=== PATIENT | female | born 1985 | race Caucasian/White ===

== ENCOUNTER 2022-01-23 11:40 | Outpatient (CLI) | payer BC, SELFPAY ==
[2022-01-23 12:05] VITALS: BP 110/68; PULSE 76; TEMP 36.8; O2SAT 98
[2022-01-23 12:20] VITALS: BMI 34.2
[2022-01-23 16:01] VITALS: BP 121/69; PULSE 93
[2022-01-23 16:35] VITALS: BP 141/91; PULSE 76
[2022-01-23 16:36] VITALS: BP 141/68; PULSE 67
--- NOTE | 2022-01-23 17:35 | OB.TRI.NOTE ---
HPI - General HPI Narrative TIANA DOWNING, is a 36 F at 34.3 weeks gestation who presents to triage for extended monitoring s/p fall at home. Patient called in and fell down the steps at home. She landed on back/side. Had not felt baby move since fall. Denies any direct trauma to abdomen. Denies any abdominal pain, cramping or contractions. Maternal Data Information SHANE Calculator Estimated Delivery Date Method Current WG Current Estimate 03/03/22 LMP (Certain) 34w 3d PFSH PFSH Home Medications aspirin [Aspirin Low Dose] 81 mg PO DAILY 01/23/22 [History Last Taken 01/23/22 07:00] buspirone [BuSpar] 10 mg PO BID 01/23/22 [History Last Taken 01/23/22 06:00] magnesium 400 mg PO/SL DAILY 01/23/22 [History Last Taken 01/22/22 21:00] no.144-folic acid [] 1 tab PO DAILY 01/23/22 [History Last Taken 01/23/22 07:00] sertraline [Zoloft] 100 mg PO BID 01/23/22 [History Last Taken 01/23/22 06:00] Allergy/AdvReac Type Severity Reaction Status Date / Time Penicillins [PCN] Allergy Severe Hives Verified 01/23/22 12:25 Sulfa (Sulfonamide Allergy Severe Swelling Verified 01/23/22 12:25 Antibiotics) ROS Eyes Eyes: Denies blurry vision Cardiovascular Cardiovascular: Reports none; Denies chest pain at rest, chest pain with activity or dizziness Respiratory/Chest Respiratory/Chest: Denies cough or dyspnea Gastrointestinal Gastrointestinal: Reports none and other; Denies diarrhea or vomiting Genitourinary Genitourinary: Denies dysuria Musculoskeletal Musculoskeletal: Reports none Integumentary Integumentary: Reports none; Denies rash Neurologic Neurologic: Denies dizziness, headache(s) or other visual disturbances Psychiatric Psychiatric: Reports none Physical Exam Const alert and no apparent distress General Appearance: cooperative Orientation / Consciousness: awake Exam Limitations: no limitations HEENT normocephalic Eyes General Eye: normal appearance of both eyes Neck full ROM Chest inspection of chest normal Resp normal respiratory effort and normal air movement Effort and Inspection: symmetric chest movement Auscultation: clear to auscultation bilaterally Cardio regular rate GI soft to palpation, non-tender and non-distended Inspection: and other Back/Spine normal ROM Extremity full ROM, normal capillary refill and no calf tenderness Skin no rashes or lesions noted Neuro oriented x3 and CN's II-XII intact bilaterally Psych mental status grossly normal NST FHR Rate Baby A Baseline: 135 Variability:: Moderate Accelerations:: 15 x 15 Decelerations:: None NST Reactive:: Yes FHR Category:: Category I Uterine Activity:: irritability Assessment & Plan (1) Fall: QUALIFIERS: Encounter type: initial encounter Qualified Code(s): W19.XXXA - Unspecified fall, initial encounter (2) 34 weeks gestation of : PLAN: Extended monitoring Positive movement since arrival to triage NST reactive- Cat. 1 tracing TOCO- contractions- patient denies feeling any cramps or contractions D/C home with follow up in office for RAZIA Dominguez notified and is collaborating physician
[2022-01-23 17:48] VITALS: BP 137/78; PULSE 81
== END 2022-01-23 23:59 | disposition home or self-care (01) ==
LOC: WPOUT 12:00 → WP 12:08
PROVIDERS: PCP Family Medicine; Visit Provider Advanced Practice Midwife
DX: Z34.93 Encounter for supervision of normal pregnancy, unspecified, third trimester (principal); Z04.3 Encounter for examination and observation following other accident; W10.9XXA Fall (on) (from) unspecified stairs and steps, initial encounter; Y93.9 Activity, unspecified; Y92.009 Unspecified place in unspecified non-institutional (private) residence as the place of occurrence of the external cause
CPT/HCPCS: 59025; 59050; 99218; G0378

== ENCOUNTER 2022-02-24 23:10 | Inpatient (IN) | payer BC, SELFPAY ==
--- NOTE | 2022-02-24 23:31 | HP.PCM.OB_ITS ---
HPI - General General Date of Admission: 02/24/22 HPI Narrative TIANA DOWNING, is a 36 F who presents at 39w0d with contractions and SROM. Contractions on and off throughout the day then felt a pop and gush of fluid. Contractions increased in strength and presented to hospital. Maternal Data Information SHANE Calculator Estimated Delivery Date Method Current WG Current Estimate 03/03/22 LMP (Certain) 39w 0d PFSH PFSH Home Medications aspirin [Aspirin Low Dose] 81 mg PO DAILY 01/23/22 [History Last Taken 01/23/22 07:00] buspirone [BuSpar] 10 mg PO BID 01/23/22 [History Last Taken 01/23/22 06:00] magnesium 400 mg PO/SL DAILY 01/23/22 [History Last Taken 01/22/22 21:00] no.144-folic acid [] 1 tab PO DAILY 01/23/22 [History Last Taken 01/23/22 07:00] sertraline [Zoloft] 100 mg PO BID 01/23/22 [History Last Taken 01/23/22 06:00] Allergy/AdvReac Type Severity Reaction Status Date / Time Penicillins [PCN] Allergy Severe Hives Verified 01/23/22 12:25 Sulfa (Sulfonamide Allergy Severe Swelling Verified 01/23/22 12:25 Antibiotics) ROS Constitutional Constitutional: Reports systems reviewed and no addt'l complaints, except as documented; Denies headache(s) Eyes Eyes: Denies acute decrease in peripheral vision, blurry vision or change in vision ENT HEENT: Reports systems reviewed and no addt'l complaints, except as documented Cardiovascular Cardiovascular: Denies chest pain or dizziness Respiratory/Chest Respiratory/Chest: Denies cough, dyspnea, dyspnea on exertion, shortness of breath at rest or shortness of breath with exertion Gastrointestinal Gastrointestinal: Denies abdominal pain, diarrhea, nausea or vomiting Genitourinary Genitourinary: Denies abdominal discomfort or movement Musculoskeletal Musculoskeletal: Denies limited range of motion Integumentary Integumentary: Reports systems reviewed and no addt'l complaints, except as documented Neurologic Neurologic: Reports systems reviewed and no addt'l complaints, except as documented Psychiatric Psychiatric: Reports systems reviewed and no addt'l complaints, except as documented Endocrine Endocrinology: Reports systems reviewed and no addt'l complaints, except as documented Hematologic/Lymphatic Hematologic/Lymphatic: Reports systems reviewed and no addt'l complaints, except as documented Allergic/Immunologic Allergic/Immunologic: Reports systems reviewed and no addt'l complaints, except as documented Physical Exam Const alert and oriented x3 General Appearance: cooperative Orientation / Consciousness: awake, oriented to person, oriented to place and oriented to time Exam Limitations: no limitations HEENT normocephalic Head and Scalp: normal to inspection, normocephalic and atraumatic Face and Sinus: normal facial exam Eyes General Eye: normal appearance of both eyes Neck full ROM Chest Chest: symmetrical chest wall rise Resp normal respiratory effort and normal air movement Auscultation: clear to auscultation bilaterally Cardio regular rate, regular rhythm, S1 normal heart sound, S2 normal heart sound, no murmurs, no rub, no gallops and no clicks GI normal to inspection, nondistended, normoactive bowel sounds and non-tender appearance of the vagina normal Bladder / Kidney Exam: no CVA tenderness Back/Spine normal ROM Extremity normal to inspection and full ROM Skin no rashes or lesions noted Neuro oriented x3, CN's II-XII intact bilaterally and moves all extremities Sensorium / Orientation: awake, alert and oriented to person Motor Exam: clonus absent Deep Tendon Reflexes: Rt Patellar (L4): 2+ and Lt Patellar (L4): 2+ Labs Labs Labs: No Data to Display GBS positive RPR negative Rubella Immune HBsAG negative HepC negative HIV negative A positive Assessment & Plan (1) Active labor at term: (2) SROM (spontaneous rupture of membranes): (3) Positive GBS test: (4) Penicillin allergy: PLAN: 1) Admit to labor and delivery 2) Routine labs 3) Covid screening 4) GBS positive, allergic to PCN and urticaria reaction. Will treat with vancomycin 5) Epidural for pain management upon patient request 6) Continuous EFM 7) [facility] and notified of patient status
[2022-02-24 23:34] VITALS: BMI 35.9
[2022-02-25] VITALS (55 sets, daily range): BP systolic 99–156; BP diastolic 54–91; PULSE 74–111; TEMP 36.5–37.7; O2SAT 92–99
[2022-02-25 00:08] LABS: ROM Internal Control Test YES-OK TO RESULT pt. (Internal QC)
[2022-02-25 00:15] LABS: ROM Patient Test POSITIVE (Negative)
[2022-02-25] MEDS: Lactated Ringers 1,000 ML 50 ML IV (00:40)
[2022-02-25 00:52] LABS: Absolute Lymphocyte Count 2.32 X10^3/uL (0.83-4.51); Absolute Neutrophil Count 6.4 X10^3/uL (2.0-7.7); Basophil# 0.02 X10^3/uL; Basophil% 0.2 % (0-1); Eosinophil# 0.08 X10^3/uL; Eosinophils% 0.8 % (0-5); Hematocrit 33.6 % (37-47); Hemoglobin 10.9 g/dL (12.0-15.0); Lymphocyte # 2.32 X10^3/ul (0.83-4.51); Lymphocyte % 24.2 % (19-41); Mean Corp Hgb Conc 32.4 g/dL (32-36); Mean Corpuscular Hgb 27.7 pg (27.0-32.0); Mean Corpuscular Volume 85.3 fL (81-99); Mean Platelet Vol. 10.1 fl (6.2-12.0); Monocyte# 0.76 X10^3/uL; Monocyte% 7.9 % (0-10); NRBC Flagged by Analyzer 0 % (0-5); Neutrophil # 6.35 X10^3/uL (2.7-7.7); Neutrophil % 66.3 % (47-70); Platelet Count 272 K/mm3 (150-450); RBC Distribution Width CV 13.5 % (11.6-14.6); Red Blood Count 3.94 M/mm3 (4.2-5.4); White Blood Count 9.6 K/mm3 (4.4-11.0)
[2022-02-25] MEDS: Ondansetron 4 MG/2 ML Vial IV (01:33)
[2022-02-25] MEDS: Lactated Ringers 500 ML 999 ML IV (03:50)
[2022-02-25] MEDS: fentaNYL-bupivacaine (epidural) 100 ML BAG EPIDURAL ×2 (05:13→15:44)
--- NOTE | 2022-02-25 08:00 | PCM.PN.BLA ---
Progress Note Patient seen at bedside. Comfortable with epidural. Denies any pain. Physical Exam Const alert and no apparent distress General Appearance: cooperative and comfortable Exam Limitations: no limitations HEENT normocephalic Eyes General Eye: normal appearance of both eyes Neck full ROM General: normal visual inspection Chest Chest: symmetrical chest wall rise Resp normal respiratory effort and normal air movement Effort and Inspection: symmetric chest movement Auscultation: clear to auscultation bilaterally Cardio regular rate and regular rhythm GI normal to inspection, nondistended, normoactive bowel sounds Back/Spine normal ROM Extremity full ROM and no calf tenderness General Extremity: normal exam except as noted Skin no rashes or lesions noted Neuro CN's II-XII intact bilaterally Psych mental status grossly normal Assessment & Plan Assessment/Plan (1) Active labor at term: (2) SROM (spontaneous rupture of membranes): (3) Positive GBS test: PLAN: CE- 6.5/80/-1 Cat. 1 tracing- NST reactive CE in 2 hours, if no change, patient agrees with starting Pitocin IV Anticipate Dr. Dominguez updated and is collaborating physician
[2022-02-25] MEDS: Lactated Ringers 1,000 ML 200 ML IV ×2 (09:02→16:21)
[2022-02-25] MEDS: Oxytocin 30 units/NS 500 ml 30 UNITS/500 ML IV.SOLN IV (12:03)
--- NOTE | 2022-02-25 12:47 | PCM.PN.BLA ---
Progress Note Patient seen at bedside. Napping on and off. Denies any pain. Feeling some rectal pressure with contractions. Physical Exam Const alert and no apparent distress General Appearance: cooperative and comfortable Exam Limitations: no limitations HEENT normocephalic Eyes General Eye: normal appearance of both eyes Neck full ROM General: normal visual inspection Chest Chest: symmetrical chest wall rise Resp normal respiratory effort and normal air movement Effort and Inspection: symmetric chest movement Auscultation: clear to auscultation bilaterally Cardio regular rate and regular rhythm GI normal to inspection, nondistended, normoactive bowel sounds Back/Spine normal ROM Extremity full ROM and no calf tenderness General Extremity: normal exam except as noted Skin no rashes or lesions noted Neuro CN's II-XII intact bilaterally Psych mental status grossly normal Assessment & Plan Assessment/Plan (1) SROM (spontaneous rupture of membranes): (2) Positive GBS test: (3) Active labor at term: PLAN: CE- /-1 Pitocin started at 2 mu/min and to increase per policy Cat. 1 tracing NST reactive Anticipate
[2022-02-25] MEDS: Oxytocin 30 units/NS 500 ml 30 UNITS/500 ML IV.SOLN 334 UNITS IV (18:30)
[2022-02-25] MEDS: Methylergonovine 0.2 MG/ML Ampul IM (18:37)
--- NOTE | 2022-02-25 19:40 | PCM.OPRPT ---
Problems Associated Problem List Diagnoses (1) Cervical laceration: Report of Operation Date of Procedure: 02/25/22 Pre-Operative Diagnosis: Cervical laceration Post-Operative Diagnosis: As above Surgery/Procedure Performed:: Repair of cervical laceration Description of Surgical Findings:: Called for possible cervical laceration and bleeding. At bedside to evaluate patient. Upon presentation, the vagina was packed and a 2nd degree perineal laceration was repaired by Mehreen Cummins CNM. Type of Anesthesia: Epidural Estimated Blood Loss (mL): 700 Description of Procedure: The uterus was explored and fundus was firm. The lower uterine segment and cervix were cleared of clot. Retractors were placed in the vagina for good visualization of the cervix. Using two ring forceps, I was able to visualize the entire circumference of the cervix and a 3 cm laceration of the cervix at the 3 o'clock position was identified. The apex was identified, and using a 3-0 Vicryl the cervical laceration was repaired in a running locked fashion. Hemostasis was noted. A vaginal packing was placed. Estimated blood loss was 700 cc. Recheck hemoglobin in the morning. Discussed cervical laceration with patient and her .
--- NOTE | 2022-02-25 19:43 | EX.PCM.OBRPT ---
Assessment & Plan (1) Cervical laceration: (2) (spontaneous vaginal delivery): (3) Laceration, obstetrical, second degree: Maternal Data Information SHANE Calculator Estimated Delivery Date Method Current WG Current Estimate 03/03/22 LMP (Certain) 39w 1d Vaginal Delivery Maternal Presentation Maternal Presentation: Spontaneous Rupture of Membranes Maternal Presentation: Patient is a at 39.1 weeks gestation that presented with spontaneous rupture of membranes and spontaneous onset of labor. Operative Information Date of Procedure: 02/25/22 Pre-Operative Diagnosis: Term gestation, Spontaneous rupture of membranes Post-Operative Diagnosis: Same, Live male infant Surgery / Procedure Performed: Spontaneous Vaginal Delivery Type of Anesthesia: Epidural Drain: Turcios to straight drain Estimated Blood Loss: 700 Time of Delivery: 18:28 Findings Description of Procedure: Patient pushing well with contractions. With minimal maternal effort, head delivered. Nuchal cord loose around neck and easily reduced. While reducing second nuchal cord around neck, delivery of infant body occurred. Cord around body and under infant arm easily reduced. placed on maternal abdomen and attended to by nursing staff. Cord clamped and cut by myself immediately due to poor infant tone. Infant taken to warmer for assessment and hasher machine operator called to room. 3 vessel cord noted with 1 true knot. Pitocin IV started for active management of the third stage of labor. Patient actively bleeding and passing large clots. Methergine IM x 1 immediately administered. Uterus firm but large amount of blood still actively coming from vagina. Vagina sweep completed by me and clots removed. Uterus explored and no retained products felt at this time. Dr. Dominguez called to unit/room for assistance. Clots sitting at cervical os. Potential cervical laceration. Pressure held on cervix via bedside nurse using ring forceps with lap sponge on end. Second degree laceration repaired in usual fashion using 3-[address] Dominguez in room and took over care of patient while this provider assisted. See additional operative report. Apgars 6/8, EBL 700 cc- CBC ordered for morning. Patient and bonding well at this time. Presentation: Vertex and DEVON Amniotic Membrane Rupture Type: Spontaneous Amniotic Fluid Description: Clear Placental Delivery Description: Spontaneous Placenta Disposition: [facility] Cord Vessel Description: 3 Vessels Cord Entanglement: Around neck x 2, loose, True Knot(s) and - (Cord around the body x1 loose) Nuchal Cord Compression: Without compression Infant A Gender: Male (1 minute): 6 (5 minute): 8 Delayed Cord Clamping: No Post Vaginal Delivery Medications Given After Delivery: IV Pitocin and IM Methergin Episiotomy Description: None Laceration: Cervical Extension/lac and 2nd degree Complication Complications: None
[2022-02-25] MEDS: 0.9% Saline Lock 10 ML Syringe IV (21:20)
[2022-02-26] VITALS (9 sets, daily range): BP systolic 103–121; BP diastolic 57–79; PULSE 74–95; RESP 16–18; TEMP 36.1–36.9; O2SAT 95–98
[2022-02-26] MEDS: Naproxen 500 MG Tablet PO (04:34)
[2022-02-26 05:10] LABS: Hematocrit 24.6 % (37-47); Hemoglobin 7.9 g/dL (12.0-15.0); Mean Corp Hgb Conc 32.1 g/dL (32-36); Mean Corpuscular Hgb 27.7 pg (27.0-32.0); Mean Corpuscular Volume 86.3 fL (81-99); Mean Platelet Vol. 9.8 fl (6.2-12.0); Platelet Count 202 K/mm3 (150-450); RBC Distribution Width CV 13.8 % (11.6-14.6); Red Blood Count 2.85 M/mm3 (4.2-5.4); White Blood Count 14.4 K/mm3 (4.4-11.0)
--- NOTE | 2022-02-26 07:11 | PCM.PN.OB ---
Subjective Subjective Patient seen at bedside. Feeling tired due to minimal sleep with . Denies pain. Denies any headache, dizziness, SOB, or CP. Objective Data Objective Data Vital Signs: Vital Signs Temp Pulse Resp BP Pulse Ox 98.5 F 94 16 104/60 97 02/26/22 04:55 02/26/22 04:55 02/26/22 04:55 02/26/22 04:55 02/26/22 00:35 Oxygen Delivery Method Room Air Weight: 216 lb 2 oz Body Mass Index (BMI) 35.9 Intake & Output: Intake and Output for Last 24 Hours 02/24/22 02/25/22 02/26/22 23:59 23:59 23:59 Intake Total 4886.89 / 4886.89 Output Total 1600 / 1600 2350 / 2350 Balance 3286.89 / 3286.89 -2350 / -2350 Lab / Micro Data Result Diagrams: 02/26/22 05:03 Labs: Laboratory Results - last 24 hr 02/26/22 05:03: WBC 14.4 H, RBC 2.85 L, Hgb 7.9 L, Hct 24.6 L, MCV 86.3, MCH 27.7, MCHC 32.1, RDW Std Deviation 43.0, RDW Coeff of Jayshree 13.8, Plt Count 202, MPV 9.8 Micro: Microbiology 02/25/22 00:55 Nasal Secretion SARS-CoV-2 Antigen (Rapid) - Final ROS Eyes Eyes: Denies blurry vision, change in vision or spots in vision ENT HEENT: Denies dizziness or headache(s) Cardiovascular Cardiovascular: Denies abdominal pain, chest pain or dyspnea Respiratory/Chest Respiratory/Chest: Denies cough, dyspnea, shortness of breath at rest or shortness of breath with exertion Gastrointestinal Gastrointestinal: Denies abdominal pain, diarrhea or vomiting Genitourinary Genitourinary: Denies change in urinary stream, difficulty urinating or dysuria Musculoskeletal Musculoskeletal: Reports none Integumentary Integumentary: Denies rash Neurologic Neurologic: Denies dizziness, headache(s), memory loss or weakness Physical Exam Const alert and no apparent distress General Appearance: cooperative and comfortable Exam Limitations: no limitations HEENT normocephalic Eyes General Eye: normal appearance of both eyes Neck full ROM General: normal visual inspection Chest Chest: symmetrical chest wall rise Resp normal respiratory effort and normal air movement Effort and Inspection: symmetric chest movement Auscultation: clear to auscultation bilaterally Cardio regular rate and regular rhythm GI normal to inspection, nondistended, normoactive bowel sounds OB / External & Speculum: other Vaginal packing removed Back/Spine normal ROM Extremity full ROM and no calf tenderness General Extremity: normal exam except as noted Skin no rashes or lesions noted Neuro CN's II-XII intact bilaterally Psych mental status grossly normal Assessment & Plan (1) Laceration, obstetrical, second degree: (2) (spontaneous vaginal delivery): (3) Cervical laceration: QUALIFIERS: Encounter type: initial encounter Qualified Code(s): S37.63XA - Laceration of uterus, initial encounter (4) Care and examination of lactating mother: (5) Acute blood loss anemia: PLAN: PPD 1 Vaginal packing removed without difficulty Turcios catheter removed Hgb. 10.9-7.9- patient asymptomatic. Transfuse 1 unit of blood (per Dr. Dominguez) Ambulate today Pain control support Repeat CBC tomorrow
[2022-02-26] MEDS: Acetaminophen 500 MG Tablet 1000 MG PO (08:37)
[2022-02-26] MEDS: 0.9% Saline Lock 10 ML Syringe IV ×3 (08:56→20:47)
[2022-02-26] MEDS: 0.9% Normal Saline 1,000 ML 30 ML IV (09:02)
[2022-02-26] MEDS: busPIRone 5 MG Tablet 10 MG PO ×2 (10:32→20:46)
[2022-02-26] MEDS: Sertraline 100 MG Tablet PO ×2 (10:32→20:46)
[2022-02-26] MEDS: Ferrous Sulfate 325 MG Tablet PO ×2 (12:42→17:31)
--- NOTE | 2022-02-26 23:53 | PN.OBGYN_ITS ---
Subjective Subjective Doing well per patient and nursing staff. Ambulating and taking PO without difficulty. Voiding and passing flatus. Pain controlled. , services for assistance. Denies headache, visual changes, chest pain, shortness of breath, leg pain or increased bleeding. Lochia normal. Objective Data Objective Data Vital Signs: Vital Signs Temp Pulse Resp BP Pulse Ox 98 F 95 16 121/70 H 97 02/26/22 20:43 02/26/22 20:43 02/26/22 20:43 02/26/22 20:43 02/26/22 20:43 Oxygen Delivery Method Room Air Weight: 216 lb 2 oz Body Mass Index (BMI) 35.9 Intake & Output: Intake and Output for Last 24 Hours 02/24/22 02/25/22 02/26/22 23:59 23:59 23:59 Intake Total 4886.89 / 4886.89 468.83 / 468.83 Output Total 1600 / 1600 2950 / 2950 Balance 3286.89 / 3286.89 -2481.17 / -2481.17 Lab / Micro Data Result Diagrams: 02/27/22 05:13 Labs: Laboratory Results - last 24 hr 02/26/22 05:03: WBC 14.4 H, RBC 2.85 L, Hgb 7.9 L, Hct 24.6 L, MCV 86.3, MCH 27 .7, MCHC 32.1, RDW Std Deviation 43.0, RDW Coeff of Jayshree 13.8, Plt Count 202, MPV 9.8 02/26/22 06:57: Crossmatch See Detail Micro: Microbiology 02/25/22 00:55 Nasal Secretion SARS-CoV-2 Antigen (Rapid) - Final ROS Constitutional Constitutional: Reports systems reviewed and no addt'l complaints, except as documented; Denies headache(s) Eyes Eyes: Denies acute decrease in peripheral vision, blurry vision or change in vision ENT HEENT: Reports systems reviewed and no addt'l complaints, except as documented Cardiovascular Cardiovascular: Denies chest pain or dizziness Respiratory/Chest Respiratory/Chest: Denies cough, dyspnea, dyspnea on exertion, shortness of breath at rest or shortness of breath with exertion Gastrointestinal Gastrointestinal: Denies abdominal pain, diarrhea, nausea or vomiting Genitourinary Genitourinary: Denies abdominal discomfort Musculoskeletal Musculoskeletal: Denies limited range of motion Integumentary Integumentary: Reports systems reviewed and no addt'l complaints, except as documented Neurologic Neurologic: Reports systems reviewed and no addt'l complaints, except as docum ented Psychiatric Psychiatric: Reports systems reviewed and no addt'l complaints, except as documented Endocrine Endocrinology: Reports systems reviewed and no addt'l complaints, except as documented Hematologic/Lymphatic Hematologic/Lymphatic: Reports systems reviewed and no addt'l complaints, except as documented Allergic/Immunologic Allergic/Immunologic: Reports systems reviewed and no addt'l complaints, except as documented Physical Exam Const alert and oriented x3 General Appearance: cooperative Orientation / Consciousness: awake, oriented to person, oriented to place and oriented to time Exam Limitations: no limitations HEENT normocephalic Head and Scalp: normal to inspection, normocephalic and atraumatic Face and Sinus: normal facial exam Eyes General Eye: normal appearance of both eyes Neck full ROM Chest Chest: symmetrical chest wall rise Resp normal respiratory effort and normal air movement Auscultation: clear to auscultation bilaterally Cardio regular rate, regular rhythm, S1 normal heart sound, S2 normal heart sound, no murmurs, no rub, no gallops and no clicks GI normal to inspection, nondistended, normoactive bowel sounds and non-tender GI Narrative: fundus firm 3 below U appearance of the vagina normal Bladder / Kidney Exam: no CVA tenderness Back/Spine normal ROM Extremity normal to inspection and full ROM Skin no rashes or lesions noted Neuro oriented x3, CN's II-XII intact bilaterally and moves all extremities Sensorium / Orientation: awake, alert and oriented to person Motor Exam: clonus absent Deep Tendon Reflexes: Rt Patellar (L4): 2+ and Lt Patellar (L4): 2+ Assessment & Plan (1) Laceration, obstetrical, second degree: (2) (spontaneous vaginal delivery): (3) Care and examination of lactating mother: (4) Acute blood loss anemia: (5) Cervical laceration: QUALIFIERS: Encounter type: initial encounter Qualified Code(s): S37.63XA - Laceration of uterus, initial encounter PLAN: 1) Routine PP Care 2) Vitals stable 3) Hgb 7.9-7.6, asymptomatic. Iron supplement daily PO 4) pain management 5) Follow up in 2 weeks and 6 weeks PP 6) D/C home
--- NOTE | 2022-02-26 23:59 | PCM.DC.SUM ---
Providers Date of Admission: 02/24/22 Primary Care Physician: Dr. Ramos Connor MD Reason For Visit: LABOR Diagnosis Discharge Diagnosis (1) Laceration, obstetrical, second degree: Status: Acute Code(s): O70.1 - Second degree perineal laceration during delivery (2) (spontaneous vaginal delivery): Status: Acute Code(s): O80 - Encounter for full-term uncomplicated delivery (3) Care and examination of lactating mother: Status: Acute Code(s): Z39.1 - Encounter for care and examination of lactating mother (4) Acute blood loss anemia: Status: Acute Code(s): D62 - Acute posthemorrhagic anemia (5) Cervical laceration: Status: Acute Code(s): S37.63XA - Laceration of uterus, initial encounter Qualifiers: Encounter type: initial encounter Qualified Code(s): S37.63XA - Laceration of uterus, initial encounter Medications at Discharge Home Medications 1 tab PO DAILY 01/23/22 buspirone 10 mg PO BID 01/23/22 sertraline [Zoloft] 100 mg PO BID 01/23/22 acetaminophen 1,000 mg PO Q6H PRN PRN #0 tab 02/27/22 ferrous sulfate [FeroSul] 325 mg PO 1200,1700 #0 tab 02/27/22 naproxen 500 mg PO Q8H PRN PRN #0 tab 02/27/22 Weight / BMI Weight Weight: 216 lb 2 oz Body Mass Index (BMI) 35.9 ABG / Lab / Microbiology Data Result Diagrams: 02/27/22 05:13 Laboratory: Laboratory Results - last 24 hr 02/26/22 05:03: WBC 14.4 H, RBC 2.85 L, Hgb 7.9 L, Hct 24.6 L, MCV 86.3, MCH 27.7, MCHC 32.1, RDW Std Deviation 43.0, RDW Coeff of Jayshree 13.8, Plt Count 202, MPV 9.8 02/26/22 06:57: Crossmatch See Detail Microbiology: Microbiology 02/25/22 00:55 Nasal Secretion SARS-CoV-2 Antigen (Rapid) - Final Meaningful Use Info Meaningful Use Diagnoses (Choose all that apply): None applicable Discharge Plan Admission Admit Date/Time: 02/24/22 23:10 Primary Reason for Your Visit: Vaginal Delivery with second degree and cervical laceration Attending Provider: Mehreen Cummins Primary Care Provider: Ramos Connor Instructions Patient Instructions: After a Vaginal Discharge Orders/Prescriptions Prescriptions: New acetaminophen 500 mg Tablet 1,000 mg PO Q6H PRN PRN (Reason: Pain 1-10 Or Fever) Qty: 0 RF: 0 ferrous sulfate [FeroSul] 325 mg (65 mg iron) Tablet 325 mg PO 1200,1700 Qty: 0 RF: 0 naproxen 500 mg Tablet 500 mg PO Q8H PRN PRN (Reason: Pain Score 1-3) Qty: 0 RF: 0 Continued sertraline [Zoloft] 100 mg Tablet 100 mg PO BID RF: 0 buspirone 10 mg Tablet 10 mg PO BID RF: 0 400 mcg Tablet,Chewable 1 tab PO DAILY RF: 0 Discontinued aspirin [Aspirin Low Dose] 81 mg Tablet,Delayed Release (Dr/Ec) 81 mg PO DAILY RF: 0 magnesium 400 mg PO/SL DAILY RF: 0 Referrals / Follow Up: Ramos Connor MD [Primary Care Provider] - Disposition Disposition (needs filled in before D/C Order can be placed): Home, Self Care
[2022-02-27 03:50] VITALS: BP 106/70; PULSE 90; RESP 14; TEMP 36.3; O2SAT 95
[2022-02-27 05:19] LABS: Absolute Neutrophil Count 8.1 X10^3/uL (2.0-7.7); Basophil# 0.02 X10^3/uL; Basophil% 0.2 % (0-1); Eosinophil# 0.25 X10^3/uL; Eosinophils% 2.1 % (0-5); Hematocrit 24.1 % (37-47); Hemoglobin 7.6 g/dL (12.0-15.0); Lymphocyte % 24.1 % (19-41); Mean Corp Hgb Conc 31.5 g/dL (32-36); Mean Corpuscular Hgb 27.9 pg (27.0-32.0); Mean Corpuscular Volume 88.6 fL (81-99); Mean Platelet Vol. 9.7 fl (6.2-12.0); Monocyte# 0.68 X10^3/uL; Monocyte% 5.7 % (0-10); NRBC Flagged by Analyzer 0 % (0-5); Neutrophil # 8.09 X10^3/uL (2.7-7.7); Neutrophil % 67.2 % (47-70); Platelet Count 220 K/mm3 (150-450); RBC Distribution Width CV 14.3 % (11.6-14.6); RBC Distribution Width SD 45.4 fl (35.1-43.9); Red Blood Count 2.72 M/mm3 (4.2-5.4)
[2022-02-27 08:30] VITALS: BP 116/69; PULSE 85; RESP 16; TEMP 36; O2SAT 99
[2022-02-27] MEDS: Sertraline 100 MG Tablet PO (10:38)
[2022-02-27] MEDS: Ferrous Sulfate 325 MG Tablet PO (10:38)
[2022-02-27] MEDS: busPIRone 5 MG Tablet 10 MG PO (10:38)
[2022-02-27 13:42] VITALS: BP 122/57; PULSE 85; RESP 16; TEMP 36.8; O2SAT 96
== END 2022-02-27 13:50 | disposition home or self-care (01) | DRG 768 ==
PROVIDERS: Advanced Practice Midwife; Admitting Provider Advanced Practice Midwife; PCP Family Medicine; Visit Provider Advanced Practice Midwife
DX: O98.82 Other maternal infectious and parasitic diseases complicating childbirth (principal); Z37.0 Single live birth; D62 Acute posthemorrhagic anemia; O71.3 Obstetric laceration of cervix; B95.1 Streptococcus, group B, as the cause of diseases classified elsewhere; O99.892 Other specified diseases and conditions complicating childbirth; Z88.0 Allergy status to penicillin; Z39.1 Encounter for care and examination of lactating mother; O90.81 Anemia of the puerperium; O70.1 Second degree perineal laceration during delivery; Z3A.39 39 weeks gestation of pregnancy; O69.81X0 Labor and delivery complicated by cord around neck, without compression, not applicable or unspecified
CPT/HCPCS: 59025; 59050; 84112; 85025; 85027; 86850; 86900; 86901; 86920; 87426; 99218; J7030; J7040; J7120; P9016; A4216; G0378; J2405